=== PATIENT | male | born 1955 | race Caucasian/White ===

== ENCOUNTER 2019-04-30 16:23 | Emergency (ER) | payer MEDICAID ==
--- NOTE | 2019-04-30 17:31 | ER Document Report ---
ED Medical Screen (RME) - General Chief Complaint: Abdominal Pain Stated Complaint: ABDOMINAL PAIN Time Seen by Provider: 04/30/19 17:27 Notes: 63-year-old male coming in today with worsening left lower quadrant pain with some nausea. No vomiting or diarrhea. History of diverticulitis in the past. Feels the same. Also has a dry nonproductive cough. He denies fevers and shaking chills. I have treated and performed a rapid initial assessment of this patient. A comprehensive ED assessment and evaluation of the patient, analysis of test results and completion of medical decision making process will be conducted by additional ED providers. PHYSICAL EXAMINATION: GENERAL: Well-appearing, well-nourished and in no acute distress. A&Ox4. Answers questions appropriately. LUNGS: Breath sounds clear to auscultation bilaterally and equal. No wheezes rales or rhonchi. HEART: Regular rate and rhythm without murmurs, rubs, gallops. ABDOMEN: Tenderness to left lower quadrant Extremities: No cyanosis, clubbing, or edema b/l. NEUROLOGICAL: Normal speech, normal gait. PSYCH: Normal mood, normal affect. - Related Data Allergies/Adverse Reactions: No Known Allergies Allergy (Unverified 04/30/19 16:24) Physical Exam - Vital signs Vitals: Temp Pulse Resp BP Pulse Ox 98.9 F 92 18 159/104 H 97 04/30/19 16:30 04/30/19 16:30 04/30/19 16:30 04/30/19 16:30 04/30/19 16:30 Course - Vital Signs Vital signs: Temp Pulse Resp BP Pulse Ox 98.9 F 92 18 159/104 H 97 04/30/19 16:30 04/30/19 16:30 04/30/19 16:30 04/30/19 16:30 04/30/19 16:30
[2019-04-30] MEDS ORDERED: KETOROLAC TROMETHAMINE INJ/PF 30 MG/1 ML SDV IV ONE (17:32)
[2019-04-30 18:07] LABS: ABSOLUTE EOSINOPHILS # (AUTO) 0.1 10^3/uL (0.0-0.6); ABSOLUTE LYMPHOCYTES (AUTO) 0.7 10^3/uL (0.5-4.7); ABSOLUTE MONOCYTES (AUTO) 0.8 10^3/uL (0.1-1.4); ABSOLUTE NEUT (AUTO) 5.2 10^3/uL (1.7-8.2); BASOPHILS % (AUTO) 0.4 % (0-2); EOSINOPHILS % (AUTO) 1.2 % (0-6); HEMATOCRIT 44.3 % (37.9-51.0); HEMOGLOBIN 14.8 g/dL (13.5-17.0); LYMPHOCYTES % (AUTO) 10.6 % (13-45); MEAN CORPUSCULAR HEMOGLOBIN 27.3 pg (27.0-33.4); MEAN CORPUSCULAR HGB CONC 33.4 g/dL (32.0-36.0); MEAN CORPUSCULAR VOLUME 82 fl (80-97); MONOCYTES % (AUTO) 11.6 % (3-13); PLATELET COUNT 203 10^3/uL (150-450); RED BLOOD COUNT 5.43 10^6/uL (4.35-5.55); SEGMENTED NEUTROPHILS % (AUTO) 76.2 % (42-78); TOTAL CELLS COUNTED % (AUTO) 100 %; WHITE BLOOD COUNT 6.8 10^3/uL (4.0-10.5)
[2019-04-30 18:10] LABS: APPEARANCE,URINE CLEAR; BILIRUBIN,URINE NEGATIVE (NEGATIVE); COLOR,URINE STRAW; GLUCOSE, URINE NEGATIVE (NEGATIVE); KETONES,URINE NEGATIVE (NEGATIVE); LEUKOCYTE ESTERASE,URINE NEGATIVE (NEGATIVE); NITRITE,URINE NEGATIVE (NEGATIVE); PROTEIN,URINE NEGATIVE (NEGATIVE); URINE SPECIFIC GRAVITY 1.004; UROBILINOGEN,URINE NEGATIVE mg/dL (<2.0)
[2019-04-30 18:26] LABS: ALANINE AMINOTRANSFERASE 16 U/L (21-72); ALBUMIN 4.1 g/dL (3.5-5.0); ALKALINE PHOSPHATASE 84 U/L (38-126); ANION GAP 9 (5-19); ASPARTATE AMINO TRANSFERASE 17 U/L (17-59); BILIRUBIN,DIRECT 0.2 mg/dL (0.0-0.4); BILIRUBIN,TOTAL 0.6 mg/dL (0.2-1.3); BLOOD UREA NITROGEN 18 mg/dL (7-20); CALCIUM 9.1 mg/dL (8.4-10.2); CARBON DIOXIDE 27 mmol/L (22-30); CHLORIDE 103 mmol/L (98-107); GLUCOSE 143 mg/dL (75-110); POTASSIUM 3.9 mmol/L (3.6-5.0); SODIUM 139.4 mmol/L (137-145); TOTAL PROTEIN 6.6 g/dL (6.3-8.2)
--- NOTE | 2019-04-30 19:14 | RADIOLOGY REPORT (SQ) ---
EXAM DESCRIPTION: CT ABD/PELVIS WITH IV ONLY COMPLETED DATE/TIME: 04/30/2019 7:05 pm REASON FOR STUDY: llq pain COMPARISON: None. TECHNIQUE: CT scan of the abdomen and pelvis performed using helical scanning technique with dynamic intravenous contrast injection. No oral contrast. Images reviewed with lung, soft tissue, and bone windows. Reconstructed coronal and sagittal MPR images reviewed. Delayed images for evaluation of the urinary system also acquired. All images stored on PACS. All CT scanners at this facility use dose modulation, iterative reconstruction, and/or weight based d osing when appropriate to reduce radiation dose to as low as reasonably achievable (ALARA). [facility]: Dose Right [facility]: CareDose [facility]: Dose Right [facility]: Teradose 4D [facility]: [email or web address] CONTRAST TYPE AND DOSE: contrast/concentration: Isovue 350.00 mg/ml; Total Contrast Delivered: 100.0 ml; Total Saline Delivered: 72.0 ml RENAL FUNCTION: GFR > 60. RADIATION DOSE: CT Rad equipment meets quality standard of care and radiation dose reduction techniq ues were employed. CTDIvol: 20.5 - 20.8 mGy. DLP: 2379 mGy-cm.. LIMITATIONS: None. FINDINGS: LOWER CHEST: No significant findings. No nodules or infiltrates. LIVER: 1 cm cyst. SPLEEN: Normal size. No focal lesions. PANCREAS: No masses. No significant calcifications. No adjacent inflammation or peripancreatic fluid collections. Pancreatic duct not dilated. GALLBLADDER: Surgically absent. ADRENAL GLANDS: No significant masses or asymmetry. RIGHT KIDNEY AND URETER: No solid masses. No significant calcifications. No hydronephrosis or hyd roureter. LEFT KIDNEY AND URETER: No solid masses. No significant calcifications. No hydronephrosis or hydr oureter. AORTA AND VESSELS: No aneurysm. RETROPERITONEUM: No retroperitoneal adenopathy, hemorrhage or masses. BOWEL AND PERITONEAL CAVITY: Diverticulitis sigmoid colon. No abscess or obstruction. Prior gastric bypass. No ascites or free air. APPENDIX: Normal. PELVIS: No mass. No free fluid. Normal bladder. ABDOMINAL WALL: No masses. No hernias. BONES: Nothing acute. OTHER: No other significant finding. IMPRESSION: Sigmoid diverticulitis. TECHNICAL DOCUMENTATION: JOB ID: [id number] Quality ID # [id number]: Final reports with documentation of one or more dose reduction techniques (e.g., Au tomated exposure control, adjustment of the mA and/or kV according to patient size, use of iterative reconstruction technique) 2010 [employer]- All Rights Reserved Reading location - IP/workstation name: [email or web address]
[2019-04-30] MEDS ORDERED: CIPROFLOXACIN HCL 500 MG TABLET PO ONE (19:31)
[2019-04-30] MEDS ORDERED: METRONIDAZOLE 500 MG TABLET PO ONE (19:31)
--- NOTE | 2019-04-30 19:38 | ER Document Report ---
Addendum entered and electronically signed by SHARONDA HARRIS PA-C 04/30/19 20:07: Discharge - Discharge Clinical Impression: Sigmoid diverticulitis, Renal insufficiency Condition: Good Disposition: HOME, SELF-CARE Instructions: Diverticulitis ([facility]), Kidney Failure ([facility]) Additional Instructions: If your symptoms are getting worse instead of improving, please return. Also if you get a fever and chills or develop nausea and vomiting, I like for you to return to be rechecked. Your kidney functions are slightly elevated above normal. This may be chronic but we do not have any labs to compare to. In the event that you are unaware of this, please follow-up with the [facility] to have this further evaluated. Prescriptions: Hydrocodone/Acetaminophen [Effort 5-325 mg Tablet] 1 tab PO Q6HP PRN #12 tablet PRN Reason: Ondansetron [Zofran Odt 4 mg Tablet] 1 tab PO Q6HP PRN #15 tab.rapdis PRN Reason: For Nausea/Vomiting Ciprofloxacin HCl [Cipro 500 mg Tablet] 500 mg PO BID #20 tablet Metronidazole [Flagyl 500 mg Tablet] 500 mg PO TID #30 tablet Referrals: [facility] [Provider Group] - Follow up as needed Original Note: ED General - General Chief Complaint: Abdominal Pain Stated Complaint: ABDOMINAL PAIN Time Seen by Provider: 04/30/19 17:27 Primary Care Provider: [facility] [Provider Group] - Follow up as needed Mode of Arrival: Ambulatory Information source: Patient TRAVEL OUTSIDE OF THE [place] IN LAST 30 DAYS: No - HPI Patient complains to provider of: Left lower quadrant pain worse with coughing and standing Onset: Last week Onset/Duration: Constant Quality of pain: Sharp Severity: Severe Pain Level: 4 Associated symptoms: None, Chest pain. denies: Chills, Diarrhea, Fever, Nausea, Vomiting Exacerbated by: Walking, Coughing Relieved by: Denies Similar symptoms previously: No Recently seen / treated by doctor: No Notes: 63-year-old male coming in today with left lower quadrant pain since last week. Worse with standing and coughing. No fevers or chills. No diarrhea. No nausea or vomiting. Feels like diverticulitis. - Related Data Allergies/Adverse Reactions: No Known Allergies Allergy (Unverified 06/07/19 16:24) Past Medical History - General Information source: Patient - Social History Smoking Status: Former Smoker Chew tobacco use (# tins/day): No Frequency of alcohol use: None Drug Abuse: None Family History: Reviewed & Not Pertinent Patient has suicidal ideation: No Patient has homicidal ideation: No Renal/ Medical History: Denies: Hx Peritoneal Dialysis Review of Systems - Review of Systems Notes: Constitutional: No fevers. No chills. EENT: No eye redness. No eye pain. No ear pain. No sore throat. Cardiovascular: No chest pain. No palpitations. Respiratory: No cough. No shortness of breath. No respiratory distress. Gastrointestinal: Left lower quadrant pain. Negative for nausea vomiting diarrhea Genitourinary: Atraumatic. No lesions. No pain. No discharge. Musculoskeletal: Atraumatic. No swelling. No deformities. Skin: No rash or lesions. Lymphatic: No swollen lymph nodes. Neurologic: No headache. No syncope. Psychiatric: No suicidal or homicidal ideation. Physical Exam - Vital signs Vitals: Temp Pulse Resp BP Pulse Ox 98.9 F 92 18 159/104 H 97 04/30/19 16:30 04/30/19 16:30 04/30/19 16:30 04/30/19 16:30 04/30/19 16:30 - Notes Notes: General: Well-developed, well-nourished. In no acute distress. Non-toxic appearing. Cardiac: Well-perfused. Regular rate and rhythm. No murmurs, rubs, or gallops. Pulmonary: No respiratory distress. No cyanosis. Bilateral lung fiels are clear to auscultation. Abdominal: Tenderness to the left lower quadrant to deep palpation. No guarding or rebound. Bowel sounds present all 4 quadrants. HEENT: Head is atraumatic. Conjunctivae not reddened. No tearing. PERRL. EOMI. Orbits atraumatic. No periorbital swelling or erythema. Oropharynx is without erythema, swelling, or exudates. Neck: Supple. No adenopathy. No meningismus. Dermatologic: Warm with good turgor. No rash. Atraumatic. Chest: Atraumatic. No chest wall tenderness to palpation. Musculoskeletal: Moves all extremities well. No range of motion deficits. no muscular or joint tenderness. No paraspinal muscle tenderness. no midline spinal tenderness or step-off. Genitourinary: Examination deferred Neurologic: No gross neurologic deficits. Psychiatric: Normal mood. Course - Re-evaluation Re-evalutation: 04/30/19 19:34 Labs are reassuring. No abscess or complications with this. Patient will be a good candidate to send home. Cipro, Flagyl, Effort, and Zofran. Patient does not have an assigned doctor locally. We will have him come back here if he needs any assistance with the diverticulitis. Incidental finding of renal insufficiency. I will refer him to [facility] for that. - Vital Signs Vital signs: Temp Pulse Resp BP Pulse Ox 98.9 F 92 18 159/104 H 97 04/30/19 16:30 04/30/19 16:30 04/30/19 16:30 04/30/19 16:30 04/30/19 16:30 - Laboratory Result Diagrams: 04/30/19 17:45 04/30/19 17:45 Laboratory results interpreted by me: 04/30/19 04/30/19 04/30/19 17:45 17:45 17:45 RDW 15.0 H Lymphocytes % 10.6 L Creatinine 1.47 H Est GFR ( Amer) 59 L Est GFR (Non-Af Amer) 49 L Glucose 143 H ALT 16 L Urine Blood SMALL H Discharge - Discharge Clinical Impression: Sigmoid diverticulitis, Renal insufficiency Condition: Good Disposition: HOME, SELF-CARE Instructions: Diverticulitis ([facility]), Kidney Failure ([facility]) Additional Instructions: If your symptoms are getting worse instead of improving, please return. Also if you get a fever and chills or develop nausea and vomiting, I like for you to return to be rechecked. Your kidney functions are slightly elevated above normal. This may be chronic but we do not have any labs to compare to. In the event that you are unaware of this, please follow-up with the [facility] to have this further evaluated. Prescriptions: Hydrocodone/Acetaminophen [Effort 5-325 mg Tablet] 1 tab PO Q6HP PRN #12 tablet PRN Reason: Ondansetron [Zofran Odt 4 mg Tablet] 1 tab PO Q6HP PRN #15 tab.rapdis PRN Reason: For Nausea/Vomiting Ciprofloxacin HCl [Cipro 500 mg Tablet] 500 mg PO BID #20 tablet Metronidazole [Flagyl 500 mg Tablet] 500 mg PO TID #30 tablet Referrals: [facility] [Provider Group] - Follow up as needed
[2019-04-30 20:14] VITALS: BP 146/101
== END 2019-04-30 20:22 | disposition home or self-care (01) ==
LOC: ER 16:23
DX: K57.32 Diverticulitis of large intestine without perforation or abscess without bleeding (principal); N28.9 Disorder of kidney and ureter, unspecified; R10.32 Left lower quadrant pain; Z87.891 Personal history of nicotine dependence
CPT/HCPCS: 99284; 96374; 36415; 85025; 80053; 81001; 74177; J1885

== ENCOUNTER 2019-09-02 14:41 | Emergency (ER) | payer SELFPAY ==
--- NOTE | 2019-09-02 14:54 | ER Document Report ---
ED Medical Screen (RME) - General Chief Complaint: Abdominal Pain Stated Complaint: ABDOMINAL PAIN Time Seen by Provider: 09/02/19 14:51 Mode of Arrival: Ambulatory Information source: Patient Notes: 61-year-old male with history of diverticulitis presents to the emergency department with complaints of left lower quad abdominal pain. Reports it feels like a flareup. Denies fever vomiting diarrhea but reports nausea. Patient left lower quad tender to palpate. I have greeted and performed a rapid initial assessment of this patient. A comprehensive ED assessment and evaluation of the patient, analysis of test results and completion of the medical decision making process will be conducted by additional ED providers. Dictation of this chart was performed using voice recognition software; therefore, there may be some unintended grammatical errors. TRAVEL OUTSIDE OF THE [place] IN LAST 30 DAYS: No - Related Data Allergies/Adverse Reactions: No Known Allergies Allergy (Unverified 04/30/19 16:24) Past Medical History - Social History Chew tobacco use (# tins/day): No Frequency of alcohol use: None Drug Abuse: None - Past Medical History Cardiac Medical History: Reports: Hx Hypertension Pulmonary Medical History: Reports: Hx COPD Renal/ Medical History: Reports: Hx End Stage Renal Disease - stage 3. Denies: Hx Peritoneal Dialysis Past Surgical History: Reports: Hx Abdominal Surgery - gastric bypass, hernia repair as achild, Hx Cholecystectomy, Hx Genitourinary Surgery - vasectomy Physical Exam - Vital signs Vitals: Temp Pulse Resp BP Pulse Ox 98.6 F 96 18 178/103 H 96 09/02/19 14:46 09/02/19 14:46 09/02/19 14:46 09/02/19 14:46 09/02/19 14:46 Course - Vital Signs Vital signs: Temp Pulse Resp BP Pulse Ox 98.6 F 96 18 178/103 H 96 09/02/19 14:46 09/02/19 14:46 09/02/19 14:46 09/02/19 14:46 09/02/19 14:46
[2019-09-02 15:36] LABS: ABSOLUTE EOSINOPHILS # (AUTO) 0.1 10^3/uL (0.0-0.6); ABSOLUTE NEUT (AUTO) 6.9 10^3/uL (1.7-8.2); APPEARANCE,URINE CLEAR; BASOPHILS % (AUTO) 0.2 % (0-2); BILIRUBIN,URINE NEGATIVE (NEGATIVE); COLOR,URINE YELLOW; EOSINOPHILS % (AUTO) 0.6 % (0-6); GLUCOSE, URINE NEGATIVE (NEGATIVE); HEMATOCRIT 46.5 % (37.9-51.0); HEMOGLOBIN 15.6 g/dL (13.5-17.0); KETONES,URINE NEGATIVE (NEGATIVE); LEUKOCYTE ESTERASE,URINE NEGATIVE (NEGATIVE); LYMPHOCYTES % (AUTO) 11.3 % (13-45); MEAN CORPUSCULAR HEMOGLOBIN 27.2 pg (27.0-33.4); MEAN CORPUSCULAR HGB CONC 33.5 g/dL (32.0-36.0); MEAN CORPUSCULAR VOLUME 81 fl (80-97); MONOCYTES % (AUTO) 11.5 % (3-13); NITRITE,URINE NEGATIVE (NEGATIVE); PLATELET COUNT 229 10^3/uL (150-450); PROTEIN,URINE NEGATIVE (NEGATIVE); RED BLOOD COUNT 5.73 10^6/uL (4.35-5.55); RED CELL DISTRIBUTION WIDTH 15.8 % (11.5-14.0); SEGMENTED NEUTROPHILS % (AUTO) 76.4 % (42-78); TOTAL CELLS COUNTED % (AUTO) 100 %; URINE SPECIFIC GRAVITY 1.015; UROBILINOGEN,URINE NEGATIVE mg/dL (<2.0)
[2019-09-02 15:55] LABS: ALBUMIN 4.2 g/dL (3.5-5.0); ALKALINE PHOSPHATASE 81 U/L (38-126); ANION GAP 7 (5-19); ASPARTATE AMINO TRANSFERASE 19 U/L (17-59); BILIRUBIN,DIRECT 0.1 mg/dL (0.0-0.4); BILIRUBIN,TOTAL 0.9 mg/dL (0.2-1.3); BLOOD UREA NITROGEN 22 mg/dL (7-20); CALCIUM 9.1 mg/dL (8.4-10.2); CARBON DIOXIDE 27 mmol/L (22-30); CHLORIDE 104 mmol/L (98-107); GLUCOSE 98 mg/dL (75-110); POTASSIUM 4.1 mmol/L (3.6-5.0)
--- NOTE | 2019-09-02 16:58 | ER Document Report ---
ED General - General Chief Complaint: Abdominal Pain Stated Complaint: ABDOMINAL PAIN Time Seen by Provider: 09/02/19 14:51 Mode of Arrival: Ambulatory TRAVEL OUTSIDE OF THE [place] IN LAST 30 DAYS: No - HPI Notes: 63-year-old male presents to the ED for complaints of left lower quadrant abdominal pain that started approximately 3 days ago. Patient does have a history of diverticulitis and diverticulosis. Denies any fevers or chills, denies any nausea vomiting or diarrhea. Patient states he has left lower quadrant pains that has become progressively worse. Has not tried any [id number] medication for pain relief. Eating has decreased but drinking without issues. Denies fevers, chills, chest pain,palpitations, shortness of breath, dyspnea, nausea, vomiting, diarrhea, ST, URI, neck pain, weakness, bowel or bladder dysfunction, saddle anesthesia, numbness or tingling in bilateral upper or lower extremities equally, muscle paralysis, weakness in bilateral uppe r or lower extremities equally or rash. - Related Data Allergies/Adverse Reactions: No Known Allergies Allergy (Unverified 04/30/19 16:24) Past Medical History - General Information source: Patient - Social History Smoking Status: Never Smoker Chew tobacco use (# tins/day): No Frequency of alcohol use: None Drug Abuse: None Family History: Reviewed & Not Pertinent Patient has suicidal ideation: No Patient has homicidal ideation: No - Past Medical History Cardiac Medical History: Reports: Hx Hypertension Pulmonary Medical History: Reports: Hx COPD Renal/ Medical History: Reports: Hx End Stage Renal Disease - stage 3. Denies: Hx Peritoneal Dialysis Past Surgical History: Reports: Hx Abdominal Surgery - gastric bypass, hernia repair as achild, Hx Cholecystectomy, Hx Genitourinary Surgery - vasectomy Review of Systems - Review of Systems Constitutional: No symptoms reported EENT: No symptoms reported Cardiovascular: No symptoms reported Respiratory: No symptoms reported Gastrointestinal: See HPI Genitourinary: No symptoms reported Male Genitourinary: No symptoms reported Musculoskeletal: No symptoms reported Skin: No symptoms reported Hematologic/Lymphatic: No symptoms reported Neurological/Psychological: No symptoms reported Physical Exam - Vital signs Vitals: Temp Pulse Resp BP Pulse Ox 98.6 F 96 18 178/103 H 96 09/02/19 14:46 09/02/19 14:46 09/02/19 14:46 09/02/19 14:46 09/02/19 14:46 - Notes Notes: PHYSICAL EXAMINATION: reviewed vital signs by RN GENERAL: Well-appearing, well-nourished and in no acute distress. HEAD: Atraumatic, normocephalic. EYES: Pupils equal round and reactive to light, extraocular movements intact, conjunctiva are normal. ENT: Nares patent, oropharynx clear without exudates. Moist mucous membranes. NECK: Normal range of motion, supple without lymphadenopathy LUNGS: Breath sounds clear to auscultation bilaterally and equal. No wheezes rales or rhonchi. HEART: Regular rate and rhythm without murmurs ABDOMEN: Soft, nondistended abdomen. left lower quadrant pain on palpation. No guarding, no rebound. No masses appreciated. no cva tenderness bilaterally Musculoskeletal: Normal range of motion, no pitting or edema. No cyanosis. NEUROLOGICAL: Cranial nerves grossly intact. Normal speech, normal gait. Normal sensory, motor exams PSYCH: Normal mood, normal affect. SKIN: Warm, Dry, normal turgor, no rashes or lesions noted. Course - Re-evaluation Re-evalutation: 09/02/19 18:10 Afebrile slightly hypertensive but stable otherwise. Nurse's notes reviewed. CBC negative for leukocytosis or anemia, CMP negative for hepatic or renal dysfunction, no electrolyte disturbances. Urinalysis does show hematuria this is consistent his last urinalysis. CT abdomen pelvis with IV contrast shows oneyda hebert has left sigmoid diverticulitis. Patient given IV pain medication due to pain being 8 out of 10, throbbing. On reevaluation, pain reduced to 3/10. She states he normally takes Tums for his acid reflux, did not bring any with him, Carafate given 1 g tablet orally which did reduce his heartburn. Denies any shortness of breath, chest pain, nausea vomiting or diarrhea. Start patient on Flagyl 500 mg twice daily for 10 days and ciprofloxacin 500 mg twice daily for 10 days as well as pain medication to take.follow up with your pcp within 24-48 hours. After performing a Medical Screening Examination, I estimate there is LOW risk for ACUTE APPENDICITIS, BOWEL OBSTRUCTION, ACUTE CHOLECYSTITIS, PERFORATED DIVERTICULITIS, INCARCERATED HERNIA, PANCREATITIS, TESTICULAR TORSION or PERFORATED ULCER, thus I consider the discharge disposition reasonable. Also, there is no evidence or peritonitis, sepsis, or toxicity. I have reevaluated this patient multiple times and no significant life threatening changes are noted. The patient and I have discussed the diagnosis and risks, and we agree with discharging home with close follow-up with the understanding that symptoms and presentations can change. We also discussed returning to the Emergency Department immediately if new or worsening symptoms occur. We have discussed the symptoms which are most concerning (e.g., bloody stool, fever, changing or worsening pain, intractable vomiting - standard verbal up date) that necessitate immediate return. - Vital Signs Vital signs: Temp Pulse Resp BP Pulse Ox 98.6 F 96 18 178/103 H 96 09/02/19 14:46 09/02/19 14:46 09/02/19 14:46 09/02/19 14:46 09/02/19 14:46 - Laboratory Result Diagrams: 09/02/19 15:00 09/02/19 15:00 Laboratory results interpreted by me: 09/02/19 09/02/19 09/02/19 15:00 15:00 15:00 RBC 5.73 H RDW 15.8 H Lymph % (Auto) 11.3 L BUN 22 H Creatinine 1.42 H Est GFR (MDRD) Non-Af 51 L Urine Blood SMALL H Discharge - Discharge Clinical Impression: Diverticulitis, Acute kidney failure Condition: Stable Disposition: HOME, SELF-CARE Instructions: Diverticulitis ([facility]), Dehydration ([facility]) Additional Instructions: Diverticulitis You have been diagnosed as having diverticulitis. This is an inflammation of a small pouch attached to the colon, called a diverticulum. Many of these small pouches can form on the colon as you get older. They are often caused by constipation. When inflamed or infected, symptoms arise -- usually abdominal pain, constipation or diarrhea, fever, and blood in the stool. Severe diverticulitis may require hospitalization. More mild cases are usually treated with antibiotics and clear liquid diet. As you improve, a diet low in residue (one which forms little stool) is prescribed. When you are better, you should eat a high-fiber diet. Stool softeners (like Metamucil) are usually recommended. Call the doctor or go to the hospital if there is increasing pain, vomitin g, high fever, large amounts of blood passed, or if bowel movements cease. Oral Narcotic Medication You have been given a prescription for pain control. This medication is a narcotic. It's best taken with food, as nausea can result if taken on an empty stomach. Don't operate machinery or drive within six hours of taking this medication. Do not combine this medicine with alcohol, or with any medication which can cause sedation (such as cold tablets or sleeping pills) unless you get permission from the physician. Narcotics tend to cause constipation. If possible, drink plenty of fluids and eat a diet high in fiber and fruits. Prescriptions: Hydrocodone/Acetaminophen [Baring 5-325 mg Tablet] 1 tab PO Q4HP PRN #12 tablet PRN Reason: Ciprofloxacin HCl [Cipro 500 mg Tablet] 500 mg PO BID #20 tablet Metronidazole [Flagyl] 500 mg PO BID #20 tablet Forms: Return to Work Referrals: DEQUAN BABIN MD [ACTIVE STAFF] - Follow up as needed MO DON MD [ACTIVE STAFF] - Follow up as needed
[2019-09-02] MEDS ORDERED: MORPHINE SULFATE 10 MG/ML INJ IV ONE (17:03)
[2019-09-02] MEDS ORDERED: ONDANSETRON HCL INJ/PF 4 MG/2 ML SDV IV ONE (17:03)
--- NOTE | 2019-09-02 17:36 | RADIOLOGY REPORT (SQ) ---
EXAM DESCRIPTION: CT ABD/PELVIS WITH IV ONLY COMPLETED DATE/TIME: 09/02/2019 4:48 pm REASON FOR STUDY: pain, hx diverticulitis COMPARISON: None. TECHNIQUE: CT scan of the abdomen and pelvis performed using helical scanning technique with dynamic intravenous contrast injection. No oral contrast. Images reviewed with lung, soft tissue, and bone windows. Reconstructed coronal and sagittal MPR images reviewed. Delayed images for evaluation of the urinary system also acquired. All images stored on PACS. All CT scanners at this facility use dose modulation, iterative reconstruction, and/or weight based d osing when appropriate to reduce radiation dose to as low as reasonably achievable (ALARA). [facility]: Dose Right [facility]: CareDose [facility]: Dose Right [facility]: Teradose 4D [facility]: [employer] CONTRAST TYPE AND DOSE: Contrast/concentration: Isovue 350.00 mg/ml; Total Contrast Delivered: 100.0 ml; Total Saline Delivered: 72.0 ml RENAL FUNCTION: Creatinine 1.42 milligrams/deciliter. RADIATION DOSE: CT Rad equipment meets quality standard of care and radiation dose reduction techniq ues were employed. CTDIvol: 21.0 - 21.1 mGy. DLP: 2483 mGy-cm.. LIMITATIONS: None. FINDINGS: LOWER CHEST: No acute findings. LIVER: The liver morphology is non cirrhotic. The subcentimeter hypodense lesion in the posterior as pect of the right hepatic lobe (image 25 series 3) is too small to characterize. The portal veins ar e patent. SPLEEN: The spleen is normal in size. PANCREAS: There is no abnormality of the pancreas. GALLBLADDER: The gallbladder is surgically absent. ADRENAL GLANDS: There is no abnormality of the adrenal glands. RIGHT KIDNEY AND URETER: Innumerable hypodense cystic lesions and probable 2 mm calculus within a the anterior lower pole calyx Lopez there is no hydronephrosis, hydroureter or ureterolithiasis. LEFT KIDNEY AND URETER: Innumerable hypodense cystic lesions. There is no hydronephrosis, nephrolith iasis, hydroureter or ureterolithiasis. The stranding in the posterior pararenal space is unchanged from 04/30/2019. AORTA AND VESSELS: No abdominal aortic dissection or aneurysmal dilatation. RETROPERITONEUM: No retroperitoneal adenopathy, hemorrhage or mass. BOWEL AND PERITONEAL CAVITY: Short segment of bowel wall thickening involving the sigmoid colon and a ssociated with thickening of the peritoneal reflections and stranding of the mesocolon ; these findin gs are centered at around an enlarged diverticulum. There is no evidence of a micro or macroperforat ion. APPENDIX: Unable to identify the appendix but there is no pericecal inflammation to suggest an acute appendicitis. PELVIS: The urinary bladder is partially distended. The prostate gland is normal in size. There is no pelvic adenopathy, free fluid or mass. ABDOMINAL WALL: Left fat containing inguinal hernia. BONES: No acute findings. OTHER: No other finding. IMPRESSION: Uncomplicated acute diverticulitis of the proximal sigmoid colon. COMMENT: This report was called to DEV DOBSON NP at17:29 on 09/02/2019. TECHNICAL DOCUMENTATION: JOB ID: [id number] Quality ID # [id number]: Final reports with documentation of one or more dose reduction techniques (e.g., Au tomated exposure control, adjustment of the mA and/or kV according to patient size, use of iterative reconstruction technique) 2010 [employer]- All Rights Reserved Reading location - IP/workstation name: [email or web address]
[2019-09-02 17:50] VITALS: BP 103/92
[2019-09-02] MEDS ORDERED: SUCRALFATE 1 GM TABLET PO ONE (17:57)
== END 2019-09-02 18:00 | disposition home or self-care (01) ==
LOC: ER 14:41
DX: K57.32 Diverticulitis of large intestine without perforation or abscess without bleeding (principal); N17.9 Acute kidney failure, unspecified; R10.32 Left lower quadrant pain; I10 Essential (primary) hypertension; J44.9 Chronic obstructive pulmonary disease, unspecified; Z98.84 Bariatric surgery status
CPT/HCPCS: 36415; 83690; 85025; 80053; 81001; 74177; J2270; J2405

== ENCOUNTER → 2020-01-13 | Outpatient (CLI) | payer OTHER, MEDICARE ==
--- NOTE | 2020-01-13 09:08 | EKG REPORT ---
SEVERITY:- OTHERWISE NORMAL ECG - SINUS RHYTHM LEFT AXIS DEVIATION : Confirmed by: Jorge Villa 13-Jan-2020 09:07:53
[2020-01-13 09:25] LABS: APPEARANCE,URINE CLEAR; BILIRUBIN,URINE NEGATIVE (NEGATIVE); COLOR,URINE YELLOW; GLUCOSE, URINE NEGATIVE (NEGATIVE); KETONES,URINE NEGATIVE (NEGATIVE); LEUKOCYTE ESTERASE,URINE NEGATIVE (NEGATIVE); NITRITE,URINE NEGATIVE (NEGATIVE); PROTEIN,URINE NEGATIVE (NEGATIVE); URINE SPECIFIC GRAVITY 1.019; UROBILINOGEN,URINE NEGATIVE mg/dL (<2.0)
[2020-01-13 09:27] LABS: ABSOLUTE EOSINOPHILS # (AUTO) 0.1 10^3/uL (0.0-0.6); ABSOLUTE LYMPHOCYTES (AUTO) 0.9 10^3/uL (0.5-4.7); ABSOLUTE MONOCYTES (AUTO) 0.4 10^3/uL (0.1-1.4); ABSOLUTE NEUT (AUTO) 1.8 10^3/uL (1.7-8.2); BASOPHILS % (AUTO) 0.6 % (0-2); EOSINOPHILS % (AUTO) 3.6 % (0-6); HEMATOCRIT 43.2 % (37.9-51.0); HEMOGLOBIN 14.7 g/dL (13.5-17.0); LYMPHOCYTES % (AUTO) 26.4 % (13-45); MEAN CORPUSCULAR HGB CONC 34.1 g/dL (32.0-36.0); MEAN CORPUSCULAR VOLUME 85 fl (80-97); MONOCYTES % (AUTO) 12.8 % (3-13); PLATELET COUNT 180 10^3/uL (150-450); RED BLOOD COUNT 5.09 10^6/uL (4.35-5.55); RED CELL DISTRIBUTION WIDTH 14.6 % (11.5-14.0); SEGMENTED NEUTROPHILS % (AUTO) 56.6 % (42-78); TOTAL CELLS COUNTED % (AUTO) 100 %; WHITE BLOOD COUNT 3.3 10^3/uL (4.0-10.5)
[2020-01-13 09:40] LABS: BLOOD UREA NITROGEN 33 mg/dL (7-20); CALCIUM 8.9 mg/dL (8.4-10.2); CARBON DIOXIDE 28 mmol/L (22-30); GLUCOSE 101 mg/dL (75-110); POTASSIUM 3.9 mmol/L (3.6-5.0)
[2020-01-13 10:50] LABS: CHLORIDE 107 mmol/L (98-107)
[2020-01-13 10:54] LABS: ANION GAP 5 (5-19)
--- NOTE | 2020-01-13 13:40 | RADIOLOGY REPORT (SQ) ---
EXAM DESCRIPTION: CHEST PA/LATERAL COMPLETED DATE/TIME: 01/13/2020 8:59 am REASON FOR STUDY: PRE-OP COMPARISON: None. EXAM PARAMETERS: NUMBER OF VIEWS: two views TECHNIQUE: Digital Frontal and Lateral radiographic views of the chest acquired. RADIATION DOSE: NA LIMITATIONS: none FINDINGS: LUNGS AND PLEURA: No opacities, masses or pneumothorax. No pleural effusion. MEDIASTINUM AND HILAR STRUCTURES: No masses or contour abnormalities. HEART AND VASCULAR STRUCTURES: Heart normal size. No evidence for failure. BONES: No acute findings. HARDWARE: None in the chest. OTHER: No other significant finding. IMPRESSION: NO SIGNIFICANT RADIOGRAPHIC FINDING IN THE CHEST. TECHNICAL DOCUMENTATION: JOB ID: [id number] 2010 [employer]- All Rights Reserved Reading location - IP/workstation name: [email or web address]
== END ==
LOC: OD 08:31
PROVIDERS: ATTEND Orthopaedic Surgery
DX: Z01.812 Encounter for preprocedural laboratory examination (principal); Z01.810 Encounter for preprocedural cardiovascular examination; Z01.811 Encounter for preprocedural respiratory examination; M17.11 Unilateral primary osteoarthritis, right knee; I10 Essential (primary) hypertension
CPT/HCPCS: 36415; 71046; 80048; 81001; 85025; 93005; 93010

== ENCOUNTER → 2020-02-03 | Outpatient (CLI) | payer OTHER, MEDICARE ==
[~2020-02-03] MED LIST: BUPIVACAINE INJ/PF LIPOSOME/PF 266 MG/20 ML SDV INJ PRN; CEFAZOLIN INJ 1 GM VIAL IV PRN; CEFAZOLIN INJ 1 GM VIAL ONE; IBUPROFEN 800 MG in NORMAL SALINE 250 ML IV PRN; LACTATED RINGERS 1000 ML IV PRN; LIDOCAINE 0.5% INJ-PF (5 MG/ML) 50 ML SDV SUBCUT PRN; OXYCODONE HCL SR 10 MG TABLET PO ONE; OXYCODONE HCL SR 10 MG TABLET PO PRN; PANTOPRAZOLE SODIUM 20 MG TABLET.DR PO ONE; PANTOPRAZOLE SODIUM 20 MG TABLET.DR PO PRN; VANCOMYCIN HCL 1,000 MG in DEXTROSE 5%-WATER 250 ML IV PRN
== END ==
LOC: OD 11:20 → INOR 02-07 05:58 → UNDOADMIN 02-07 05:58 → EDSTATUS 02-07 08:45
PROVIDERS: ATTEND Orthopaedic Surgery
DX: Z53.9 Procedure and treatment not carried out, unspecified reason (principal)
CPT/HCPCS: 36415; 84132; J0690; J1741; J3370; J3490; J7050; J7060

== ENCOUNTER 2020-04-24 05:17 | Inpatient (IN) | payer OTHER, MEDICARE ==
[2020-04-19 11:23] LABS: HEMATOCRIT 44.4 % (37.9-51.0); HEMOGLOBIN 15.4 g/dL (13.5-17.0); MEAN CORPUSCULAR HEMOGLOBIN 29.5 pg (27.0-33.4); MEAN CORPUSCULAR HGB CONC 34.8 g/dL (32.0-36.0); MEAN CORPUSCULAR VOLUME 85 fl (80-97); PLATELET COUNT 205 10^3/uL (150-450); RED BLOOD COUNT 5.23 10^6/uL (4.35-5.55); RED CELL DISTRIBUTION WIDTH 14.8 % (11.5-14.0); WHITE BLOOD COUNT 4.2 10^3/uL (4.0-10.5)
[2020-04-19 11:28] LABS: APPEARANCE,URINE CLEAR; BILIRUBIN,URINE NEGATIVE (NEGATIVE); COLOR,URINE YELLOW; GLUCOSE, URINE NEGATIVE (NEGATIVE); KETONES,URINE NEGATIVE (NEGATIVE); LEUKOCYTE ESTERASE,URINE NEGATIVE (NEGATIVE); NITRITE,URINE NEGATIVE (NEGATIVE); PROTEIN,URINE NEGATIVE (NEGATIVE); URINE SPECIFIC GRAVITY 1.012; UROBILINOGEN,URINE NEGATIVE mg/dL (<2.0)
--- NOTE | 2020-04-19 11:35 | RADIOLOGY REPORT (SQ) ---
EXAM DESCRIPTION: CHEST PA/LATERAL IMAGES COMPLETED DATE/TIME: 04/19/2020 10:36 am REASON FOR STUDY: PRE-OP COMPARISON: PA and lateral views of the chest from 01/13/2020. EXAM PARAMETERS: NUMBER OF VIEWS: Two views. TECHNIQUE: PA and lateral views of the chest were obtained. RADIATION DOSE: NA. LIMITATIONS: None. FINDINGS: LUNGS AND PLEURA: No consolidation, pleural effusion or pneumothorax. MEDIASTINUM AND HILAR STRUCTURES: No mediastinal or hilar contour abnormality. HEART AND VASCULAR STRUCTURES: The cardiac silhouette and pulmonary vasculature are within normal blake its. BONES: No acute findings. HARDWARE: None in the chest. OTHER: No other finding. IMPRESSION: No acute cardiopulmonary process. TECHNICAL DOCUMENTATION: JOB ID: [id number] 2010 [employer]- All Rights Reserved Reading location - IP/workstation name: [email or web address]
[2020-04-19 11:38] LABS: ANION GAP 8 (5-19); BLOOD UREA NITROGEN 23 mg/dL (7-20); CARBON DIOXIDE 24 mmol/L (22-30); CHLORIDE 105 mmol/L (98-107); GLUCOSE 94 mg/dL (75-110)
[2020-04-19 11:58] LABS: ABSOLUTE LYMPHOCYTES# (MANUAL) 1.3 10^3/uL (0.5-4.7); ABSOLUTE MONOCYTES # (MANUAL) 0.3 10^3/uL (0.1-1.4); ANISOCYTOSIS SLIGHT; BASOPHILS % (MANUAL) 0 % (0-2); EOSINOPHILS % (MANUAL) 2 % (0-6); HYPOCHROMASIA SLIGHT; LYMPHOCYTES % (MANUAL) 31 % (13-45); MONOCYTES % (MANUAL) 7 % (3-13); PLATELET COMMENT ADEQUATE; SEGMENTED NEUTROPHILS % (MAN) 60 % (42-78); TOTAL CELLS COUNTED 100; TOXIC VACUOLATION PRESENT
[2020-04-19 11:59] LABS: TEAR DROP CELLS 1+
--- NOTE | 2020-04-19 19:15 | EKG REPORT ---
SEVERITY:- ABNORMAL ECG - SINUS RHYTHM FIRST DEGREE AV BLOCK LEFT AXIS DEVIATION : Confirmed by: Walter Gifford MD 19-Apr-2020 19:15:04
[~2020-04-24 05:17] MED LIST changes: -BUPIVACAINE INJ/PF LIPOSOME/PF 266 MG/20 ML SDV INJ PRN; -OXYCODONE HCL SR 10 MG TABLET PO PRN
[2020-04-24] MEDS: OXYCODONE HCL SR 10 MG TABLET PO PRN ×2 (05:30→18:27)
[2020-04-24] MEDS ORDERED: MIDAZOLAM 2 MG/2 ML INJ ONE (06:21)
[2020-04-24] MEDS ORDERED: ONDANSETRON HCL INJ/PF 4 MG/2 ML SDV ONE (06:21)
[2020-04-24] MEDS ORDERED: DEXAMETHASONE SOD PHOSPHATE INJ 4 MG/1 ML VIAL ONE (06:21)
[2020-04-24] MEDS ORDERED: FENTANYL CITRATE INJ/PF 100 MCG/2 ML AMPUL ONE (06:21)
[2020-04-24] MEDS ORDERED: PROPOFOL INJ 200 MG/20 ML VIAL IV ONE (06:22)
[2020-04-24] MEDS ORDERED: LIDOCAINE 0.5% INJ-PF (5 MG/ML) 50 ML SDV ONE (06:25)
[2020-04-24] MEDS ORDERED: TRANEXAMIC ACID INJ/PF 1,000 MG/10 ML SDV ONE (06:25)
[2020-04-24] MEDS ORDERED: BUPIVACAINE INJ/PF LIPOSOME/PF 266 MG/20 ML SDV ONE (07:17)
[2020-04-24] MEDS ORDERED: THROMBIN (BOVINE) TOPICAL 20000 UNIT VIAL ONE (07:17)
[2020-04-24] MEDS ORDERED: MORPHINE SULFATE 10 MG/ML INJ IV PRN (07:57)
[2020-04-24] MEDS ORDERED: DIPHENHYDRAMINE HCL 50 MG/ML VIAL IV PRN ×2 (07:57→08:39)
[2020-04-24] MEDS ORDERED: FENTANYL CITRATE INJ/PF 100 MCG/2 ML AMPUL IV PRN ×3 (07:57)
[2020-04-24] MEDS ORDERED: MEPERIDINE HCL/PF INJ 25 MG/1 ML DISP.SYRIN IV PRN (07:57)
[2020-04-24] MEDS ORDERED: PROMETHAZINE HCL INJ 25 MG/1 ML VIAL IV PRN ×2 (07:57)
[2020-04-24] MEDS ORDERED: ONDANSETRON HCL INJ/PF 4 MG/2 ML SDV IV PRN ×2 (07:57→08:39)
[2020-04-24] MEDS: BUPIVACAINE INJ/PF LIPOSOME/PF 266 MG/20 ML SDV INJ PRN ×2 (08:08→08:26)
--- NOTE | 2020-04-24 08:38 | Operative Report ---
Operative Report DATE OF SURGERY: 04/24/20 PREOPERATIVE DIAGNOSIS: Right knee arthritis OPERATION: Right knee arthroplasty SURGEON: LETICIA COLIN ANESTHESIA: GA TISSUE REMOVED OR ALTERED: Bone to pathology ESTIMATED BLOOD LOSS: 75 PROCEDURE: Implants used: Femur: sRyker triathlon size 7 CR uncemented femur Tibia: 7 uncemented tibia Tibial liner: 11 mm CS insert Patella: 40 mm uncemented patella Procedure with the patient supine on the operating table the right the limb is prepped and draped in a sterile fashion. The limb was elevated for exsanguination and the tourniquet inflated to 280 torr. A standard midline median parapatellar approach the knee is taken. Access is gained to the femoral canal through the intercondylar notch. Intramedullary alignment instrumentation used to resect 10 mm of distal femur in 5 of valgus. Sizing guide indicated a size 7 femur. Appropriate cutting jig is then used to fashion anterior posterior and chamfer cuts. A trial reduction femurs performed and this is judged to be adequate. Attention was next turned to the tibia. Using an extra medullary alignment system 11 millimeters was resected off the medial tibial plateau to make up for a medial tibial plateau defect.. This is sized to a size [place] tibia. A trial reduction was now performed with a 7 femur and a 7 tibia using a 11 millimeters spacer. It is full extension and central patellofemoral tracking. The articular surface the patella was next resected using an oscillating saw. All trial implants were removed. The above implants were impacted into po sition. The tourniquet was deflated hemostasis obtained the wound is then closed in layers using interrupted Vicryl followed by elodia. A sterile compressive dressing was applied and the patient returned to recovery room in satisfactory condition.
[2020-04-24] MEDS ORDERED: ZOLPIDEM TARTRATE 5 MG TABLET PO PRN (08:39)
[2020-04-24] MEDS ORDERED: ONDANSETRON 4 MG TAB.RAPDIS PO PRN (08:39)
[2020-04-24] MEDS ORDERED: ACETAMINOPHEN 325 MG TABLET PO PRN (08:39)
[2020-04-24] MEDS ORDERED: MAG HYDROX/AL HYDROX/SIMETH SUSP 30 ML UDCUP PO PRN (08:39)
[2020-04-24] MEDS ORDERED: TRANEXAMIC ACID INJ/PF 1,000 MG/10 ML SDV IV ONE (09:00)
[2020-04-24] MEDS: HYDROMORPHONE HCL INJ/PF 2 MG/ML AMPULE ONE ×2 (09:21→09:41)
--- NOTE | 2020-04-24 09:54 | RADIOLOGY REPORT (SQ) ---
EXAM DESCRIPTION: KNEE RIGHT 2 VIEWS IMAGES COMPLETED DATE/TIME: 04/24/2020 9:29 am REASON FOR STUDY: Post OP -Long Cassette in PACU M17.11 UNILATERAL PRIMARY OSTEOARTHRITIS, RIGHT KN EE COMPARISON: None. NUMBER OF VIEWS: Two views. TECHNIQUE: AP and lateral radiographic images acquired of the right knee. LIMITATIONS: None. FINDINGS: MINERALIZATION: Normal. BONES: Status post TKA; the hardware is in anatomic alignment. There is no periprosthetic fracture. JOINT: Intra-articular and subcutaneous emphysema. SOFT TISSUES: As above. OTHER: Surgical cutaneous elodia. IMPRESSION: Uncomplicated TKA hardware with expected immediate postoperative findings. TECHNICAL DOCUMENTATION: JOB ID: [id number] 2010 [employer]- All Rights Reserved Reading location - IP/workstation name: [email or web address]
[2020-04-24] MEDS ORDERED: HYDROMORPHONE HCL INJ/PF 2 MG/ML AMPULE IV PRN (09:58)
[2020-04-24] MEDS ORDERED: LOSARTAN POTASSIUM 50 MG TABLET PO SCH (10:00)
[2020-04-24] MEDS ORDERED: (PENDING PHARMACY ID) (Losartan/Hydrochlorothiazide [Losartan-Hctz 50-12.5 Mg Tab] 1 TAB) PO SCH (10:00)
[2020-04-24] MEDS: OXYCODONE HCL IR 5 MG TABLET PO PRN (10:55)
[2020-04-24] MEDS: RINGERS SOLUTION,LACTATED 1,000 ML IV PRN (10:56)
[2020-04-24] MEDS ORDERED: SUCCINYLCHOLINE CHLORIDE INJ 200 MG/10 ML VIAL ONE (14:20)
[2020-04-24] MEDS ORDERED: PHENYLEPHRINE HCL INJ/PF 10 MG/1 ML SDV ONE (14:20)
[2020-04-24] MEDS: ASPIRIN 81 MG TABLET, ENT COATED PO SCH (14:39)
[2020-04-24] MEDS: IBUPROFEN 800 MG in NORMAL SALINE 250 ML IV SCH ×2 (14:39→22:45)
[2020-04-24] MEDS: SENNOSIDES/DOCUSATE 8.6-50 MG 1 EACH TABLET PO SCH (18:21)
[2020-04-24] MEDS ORDERED: VANCOMYCIN HCL 1,000 MG in DEXTROSE 5%-WATER 250 ML IV ONE (20:39)
[2020-04-24] MEDS: OXYCODONE HCL SR 10 MG TABLET PO SCH (22:44)
[2020-04-25] MEDS: OXYCODONE HCL IR 5 MG TABLET PO PRN ×2 (05:39→12:34)
[2020-04-25] MEDS: IBUPROFEN 800 MG in NORMAL SALINE 250 ML IV SCH ×2 (05:40→15:13)
[2020-04-25] MEDS: RINGERS SOLUTION,LACTATED 1,000 ML IV PRN (05:44)
[2020-04-25] MEDS ORDERED: PANTOPRAZOLE SODIUM 40 MG TABLET.DR PO SCH (06:00)
[2020-04-25 06:21] LABS: HEMOGLOBIN 12.5 g/dL (13.5-17.0); MEAN CORPUSCULAR HEMOGLOBIN 29.2 pg (27.0-33.4); MEAN CORPUSCULAR HGB CONC 33.9 g/dL (32.0-36.0); MEAN CORPUSCULAR VOLUME 86 fl (80-97); PLATELET COUNT 150 10^3/uL (150-450); RED CELL DISTRIBUTION WIDTH 14.5 % (11.5-14.0); WHITE BLOOD COUNT 4.5 10^3/uL (4.0-10.5)
[2020-04-25 06:38] LABS: ANION GAP 5 (5-19); BLOOD UREA NITROGEN 23 mg/dL (7-20); CALCIUM 8.1 mg/dL (8.4-10.2); CARBON DIOXIDE 26 mmol/L (22-30); CHLORIDE 105 mmol/L (98-107); GLUCOSE 114 mg/dL (75-110)
--- NOTE | 2020-04-25 07:05 | PDOC DISCHARGE SUMMARY ---
Impression - Admit/DC Date/PCP Admission Date/Primary Care Provider: 04/24/20 05:17 ARTURO PACKER MD Discharge Date: 04/25/20 - Additional Information Resuscitation Status: Full Code Discharge Diet: Regular Discharge Activity: Balance Activity w/Rest, No Driving, No tub bath Referrals: ARTURO PACKER MD [Primary Care Provider] - Home Medications: Losartan/Hydrochlorothiazide [Hyzaar 100-12.5 Tablet] 1 tab PO QAM 04/24/20 History of Present Illiness History of Present Illness: WALLY YANCEY is a 64 year old male Patient is a 64-year-old white male with progressive bilateral knee pain and functional disability right greater than left. Patient is admitted for an elective right knee arthroplasty. Hospital Course Hospital Course: Is admitted through the operating room where he undergoes an uncomplicated right knee arthroplasty. Is returned to the floor in satisfactory patient. Makes modest progress with physical therapy on the day of surgery. This will continue on postop day 1 prior to discharge. Physical Exam Vital Signs: Temp Pulse Resp BP Pulse Ox 37.0 C 74 16 152/72 H 95 04/24/20 19:20 04/24/20 19:20 04/24/20 19:20 04/24/20 19:20 04/24/20 19:20 Intake & Output 04/24/20 04/25/20 04/26/20 06:59 06:59 06:59 Intake Total 0 7213 Output Total 4539 Balance 0 2674 Weight 150.4 kg General appearance: PRESENT: no acute distress, mild distress, obese Head exam: PRESENT: normocephalic Respiratory exam: PRESENT: unlabored Cardiovascular exam: PRESENT: RRR Pulses: PRESENT: +1 pedal pulses bilateral Vascular exam: PRESENT: normal capillary refill GI/Abdominal exam: PRESENT: soft Rectal exam: PRESENT: deferred Musculoskeletal exam: PRESENT: other - Lower extremity dressing clean dry and intact. Distal neurovascular examinations intact. Neurological exam: PRESENT: alert, awake, oriented to person, oriented to place, oriented to time, oriented to situation. ABSENT: motor sensory deficit Psychiatric exam: PRESENT: appropriate affect, normal mood. ABSENT: homicidal ideation, suicidal ideation Skin exam: PRESENT: dry, intact, warm. ABSENT: cyanosis, rash Results Laboratory Results: WBC 4.5 10^3/uL (4.0-10.5) 04/25/20 05:57 RBC 4.30 10^6/uL (4.35-5.55) L 04/25/20 05:57 Hgb 12.5 g/dL (13.5-17.0) L 04/25/20 05:57 Hct 37.0 % (37.9-51.0) L 04/25/20 05:57 MCV 86 fl (80-97) 04/25/20 05:57 MCH 29.2 pg (27.0-33.4) 04/25/20 05:57 MCHC 33.9 g/dL (32.0-36.0) 04/25/20 05:57 RDW 14.5 % (11.5-14.0) H 04/25/20 05:57 Plt Count 150 10^3/uL (150-450) 04/25/20 05:57 Lymph % (Auto) Not Reportable 04/19/20 10:55 Marshall % (Auto) Not Reportable 04/19/20 10:55 Eos % (Auto) Not Reportable 04/19/20 10:55 Baso % (Auto) Not Reportable 04/19/20 10:55 Absolute Neuts (auto) Not Reportable 04/19/20 10:55 Absolute Lymphs (auto) Not Reportable 04/19/20 10:55 Absolute Monos (auto) Not Reportable 04/19/20 10:55 Absolute Eos (auto) Not Reportable 04/19/20 10:55 Absolute Basos (auto) Not Reportable 04/19/20 10:55 Total Counted 100 04/19/20 10:55 Seg Neutrophils % Not Reportable 04/19/20 10:55 Seg Neuts % (Manual) 60 % (42-78) 04/19/20 10:55 Lymphocytes % (Manual) 31 % (13-45) 04/19/20 10:55 Monocytes % (Manual) 7 % (3-13) 04/19/20 10:55 Eosinophils % (Manual) 2 % (0-6) 04/19/20 10:55 Basophils % (Manual) 0 % (0-2) 04/19/20 10:55 Abs Neuts (Manual) 2.5 10^3/uL (1.7-8.2) 04/19/20 10:55 Abs Lymphs (Manual) 1.3 10^3/uL (0.5-4.7) 04/19/20 10:55 Abs Monocytes (Manual) 0.3 10^3/uL (0.1-1.4) 04/19/20 10:55 Absolute Eos (Manual) 0.1 10^3/uL (0.0-0.6) 04/19/20 10:55 Abs Basophils (Manual) 0.0 10^3/uL (0.0-0.2) 04/19/20 10:55 Toxic Vacuolation PRESENT 04/19/20 10:55 Platelet Comment ADEQUATE 04/19/20 10:55 Hypochromasia SLIGHT 04/19/20 10:55 Anisocytosis SLIGHT 04/19/20 10:55 Tear Drop Cells 1+ 04/19/20 10:55 Sodium 135.8 mmol/L (137-145) L 04/25/20 05:57 Potassium 4.0 mmol/L (3.6-5.0) 04/25/20 05:57 Chloride 105 mmol/L (98-107) 04/25/20 05:57 Carbon Dioxide 26 mmol/L (22-30) 04/25/20 05:57 Anion Gap 5 (5-19) 04/25/20 05:57 BUN 23 mg/dL (7-20) H 04/25/20 05:57 Creatinine 1.59 mg/dL (0.52-1.25) H 04/25/20 05:57 Est GFR ( Amer) 53 (>60) L 04/25/20 05:57 Est GFR (MDRD) Non-Af 44 (>60) L 04/25/20 05:57 Glucose 114 mg/dL (75-110) H 04/25/20 05:57 Calcium 8.1 mg/dL (8.4-10.2) L 04/25/20 05:57 Urine Color YELLOW 04/19/20 10:00 Urine Appearance CLEAR 04/19/20 10:00 Urine pH 5.0 (5.0-9.0) 04/19/20 10:00 Ur Specific [place] 1.012 04/19/20 10:00 Urine Protein NEGATIVE mg/dL (NEGATIVE) 04/19/20 10:00 Urine Glucose (UA) NEGATIVE mg/dL (NEGATIVE) 04/19/20 10:00 Urine Ketones NEGATIVE mg/dL (NEGATIVE) 04/19/20 10:00 Urine Blood NEGATIVE (NEGATIVE) 04/19/20 10:00 Urine Nitrite NEGATIVE (NEGATIVE) 04/19/20 10:00 Urine Bilirubin NEGATIVE (NEGATIVE) 04/19/20 10:00 Urine Urobilinogen NEGATIVE mg/dL (<2.0) 04/19/20 10:00 Ur Leukocyte Esterase NEGATIVE (NEGATIVE) 04/19/20 10:00 Urine WBC (Auto) 1 /HPF 04/19/20 10:00 Urine RBC (Auto) 0 /HPF 04/19/20 10:00 Squamous Epi Cells Auto <1 /HPF 04/19/20 10:00 Urine Mucus (Auto) RARE /LPF 04/19/20 10:00 Urine Ascorbic Acid NEGATIVE (NEGATIVE) 04/19/20 10:00 COVID-19 Source NASOPHARYNGEAL 04/19/20 10:05 COVID-19 ([facility]) NOT DETECTED 04/19/20 10:05 Blood Type O POSITIVE 04/24/20 06:07 Antibody Screen NEGATIVE 04/24/20 06:07 Impressions: Chest X-Ray 04/19/20 00:00 IMPRESSION: No acute cardiopulmonary process. Knee X-Ray 04/24/20 08:41 IMPRESSION: Uncomplicated TKA hardware with expected immediate postoperative findings. Plan Plan of Treatment: Patient be discharged home in a weightbearing as tolerated basis with home health services and DME. Follow-up with Dr. Jaun Roberts and son of surgery in 2 weeks for staple removal. Time Spent: Less than 30 Minutes Stroke Is this a Stroke Patient?: No Stroke Pt being discharged on Anti-thrombolytic therapy?: Yes Acute Heart Failure - Is this a Heart Failure Patient?: No
[2020-04-25] MEDS: SENNOSIDES/DOCUSATE 8.6-50 MG 1 EACH TABLET PO SCH (09:54)
[2020-04-25] MEDS: ASPIRIN 81 MG TABLET, ENT COATED PO SCH (09:54)
[2020-04-25] MEDS: OXYCODONE HCL SR 10 MG TABLET PO SCH (09:54)
[2020-04-25] MEDS ORDERED: HYDROCHLOROTHIAZIDE 12.5 MG TABLET PO SCH (10:00)
[2020-04-25] MEDS ORDERED: PRENATAL VITAMIN W DHA CAPSULE PO SCH (10:00)
[2020-04-25] MEDS ORDERED: LOSARTAN POTASSIUM 50 MG TABLET PO SCH (10:00)
[2020-04-25 13:40] VITALS: BP 148/71
== END 2020-04-25 16:48 | disposition home health service (06) | DRG 470 ==
LOC: INOR 05:17 → 4S 10:31
PROVIDERS: ADMIT Orthopaedic Surgery; ATTEND Orthopaedic Surgery
PROC: 0SRC0JA Replacement of Right Knee Joint with Synthetic Substitute, Uncemented, Open Approach (ICD-10-PCS; principal; 2020-04-24 07:30)
DX: M17.11 Unilateral primary osteoarthritis, right knee (principal); I10 Essential (primary) hypertension; F17.210 Nicotine dependence, cigarettes, uncomplicated
CPT/HCPCS: 01402; 36415; 71046; 80048; 81001; 84132; 85025; 85027; 86850; 86900; 86901; 87635; 88305; 88311; 93005; 93010; 94660; 94799; C1776; C9290; C9803; J0330; J0690; J1100; J1170; J1200; J1741; J2250; J2370; J2405; J2704; J3010; J3370; J3490; J7050; J7060; J7120

== ENCOUNTER → 2020-07-19 | Outpatient (CLI) | payer OTHER, MEDICARE ==
--- NOTE | 2020-07-19 10:50 | RADIOLOGY REPORT (SQ) ---
EXAM DESCRIPTION: CHEST PA/LATERAL IMAGES COMPLETED DATE/TIME: 07/19/2020 10:38 am REASON FOR STUDY: PRE-OP COMPARISON: 04/19/2020 EXAM PARAMETERS: NUMBER OF VIEWS: two views TECHNIQUE: Digital Frontal and Lateral radiographic views of the chest acquired. RADIATION DOSE: NA LIMITATIONS: none FINDINGS: LUNGS AND PLEURA: No opacities, masses or pneumothorax. No pleural effusion. MEDIASTINUM AND HILAR STRUCTURES: No masses or contour abnormalities. HEART AND VASCULAR STRUCTURES: Heart normal size. No evidence for failure. BONES: No acute findings. HARDWARE: None in the chest. OTHER: No other significant finding. IMPRESSION: NO SIGNIFICANT RADIOGRAPHIC FINDING IN THE CHEST. TECHNICAL DOCUMENTATION: JOB ID: [id number] 2010 [employer]- All Rights Reserved Reading location - IP/workstation name: NIA
[2020-07-19 11:29] LABS: APPEARANCE,URINE CLEAR; BILIRUBIN,URINE NEGATIVE (NEGATIVE); COLOR,URINE YELLOW; GLUCOSE, URINE NEGATIVE (NEGATIVE); KETONES,URINE NEGATIVE (NEGATIVE); LEUKOCYTE ESTERASE,URINE NEGATIVE (NEGATIVE); NITRITE,URINE NEGATIVE (NEGATIVE); PROTEIN,URINE NEGATIVE (NEGATIVE); URINE SPECIFIC GRAVITY 1.019; UROBILINOGEN,URINE NEGATIVE mg/dL (<2.0)
[2020-07-19 11:47] LABS: HEMATOCRIT 45.5 % (37.9-51.0); HEMOGLOBIN 15.3 g/dL (13.5-17.0); MEAN CORPUSCULAR HGB CONC 33.6 g/dL (32.0-36.0); MEAN CORPUSCULAR VOLUME 86 fl (80-97); PLATELET COUNT 217 10^3/uL (150-450); RED BLOOD COUNT 5.27 10^6/uL (4.35-5.55); RED CELL DISTRIBUTION WIDTH 15.2 % (11.5-14.0); WHITE BLOOD COUNT 3.5 10^3/uL (4.0-10.5)
[2020-07-19 11:59] LABS: ANION GAP 10 (5-19); BLOOD UREA NITROGEN 36 mg/dL (7-20); CARBON DIOXIDE 25 mmol/L (22-30); CHLORIDE 106 mmol/L (98-107); GLUCOSE 103 mg/dL (75-110); POTASSIUM 4.2 mmol/L (3.6-5.0)
[2020-07-19 12:11] LABS: ABSOLUTE LYMPHOCYTES# (MANUAL) 1.3 10^3/uL (0.5-4.7); ABSOLUTE MONOCYTES # (MANUAL) 0.5 10^3/uL (0.1-1.4); BASOPHILS % (MANUAL) 1 % (0-2); EOSINOPHILS % (MANUAL) 1 % (0-6); LYMPHOCYTES % (MANUAL) 36 % (13-45); MONOCYTES % (MANUAL) 14 % (3-13); SEGMENTED NEUTROPHILS % (MAN) 48 % (42-78); TOTAL CELLS COUNTED 100
[2020-07-19 12:13] LABS: ANISOCYTOSIS SLIGHT; OVALOCYTES SLIGHT; PLATELET COMMENT ADEQUATE
--- NOTE | 2020-07-19 21:50 | EKG REPORT ---
SEVERITY:- DEFECTIVE ECG - LEFT AXIS DEVIATION Probably sinus rhythm.Baseline artifact.Repeat EKG : Confirmed by: Katt Trejo MD 19-Jul-2020 21:50:42
== END ==
LOC: OD 10:08
PROVIDERS: ATTEND Orthopaedic Surgery
DX: Z01.810 Encounter for preprocedural cardiovascular examination (principal); Z01.811 Encounter for preprocedural respiratory examination; Z01.812 Encounter for preprocedural laboratory examination
CPT/HCPCS: 36415; 71046; 80048; 81001; 85025; 93005; 93010

== ENCOUNTER 2020-08-07 06:27 | Inpatient (IN) | payer OTHER, MEDICARE ==
[~2020-08-07 06:27] MED LIST changes: +BUPIVACAINE INJ/PF LIPOSOME/PF 266 MG/20 ML SDV INJ PRN; -CEFAZOLIN INJ 1 GM VIAL ONE; +EPHEDRINE SULFATE INJ 50 MG/1 ML AMPULE ONE; +FENTANYL CITRATE INJ/PF 100 MCG/2 ML AMPUL ONE; -LACTATED RINGERS 1000 ML IV PRN; +MIDAZOLAM 2 MG/2 ML INJ ONE; +NORMAL SALINE 1000 ML (RENAL PATIENTS) IV PRN; +ONDANSETRON HCL INJ/PF 4 MG/2 ML SDV ONE; -OXYCODONE HCL SR 10 MG TABLET PO ONE; +OXYCODONE HCL SR 10 MG TABLET PO PRN; -PANTOPRAZOLE SODIUM 20 MG TABLET.DR PO ONE; +PROPOFOL INJ 200 MG/20 ML VIAL IV ONE; +TRANEXAMIC ACID INJ/PF 1,000 MG/10 ML SDV ONE
[2020-08-07] MEDS ORDERED: ONDANSETRON HCL INJ/PF 4 MG/2 ML SDV ONE (08:07)
[2020-08-07] MEDS ORDERED: DEXAMETHASONE SOD PHOSPHATE INJ 4 MG/1 ML VIAL ONE (08:07)
[2020-08-07] MEDS ORDERED: FENTANYL CITRATE INJ/PF 100 MCG/2 ML AMPUL ONE ×2 (08:07→09:10)
[2020-08-07] MEDS ORDERED: MIDAZOLAM 2 MG/2 ML INJ ONE (08:07)
[2020-08-07] MEDS ORDERED: TRANEXAMIC ACID INJ/PF 1,000 MG/10 ML SDV ONE ×2 (08:07→11:49)
[2020-08-07] MEDS ORDERED: MORPHINE SULFATE 10 MG/ML INJ ONE (08:07)
[2020-08-07] MEDS ORDERED: PROPOFOL INJ 200 MG/20 ML VIAL IV ONE (08:08)
[2020-08-07] MEDS ORDERED: BUPIVACAINE HCL 0.25 % INJ/PF (2.5 MG/1 ML) 30 ML VIAL ONE (08:10)
[2020-08-07] MEDS ORDERED: BUPIVACAINE HCL 0.25% /EPINEPHRINE INJ/PF 30 ML SDV ONE (08:14)
[2020-08-07] MEDS ORDERED: PANTOPRAZOLE SODIUM 20 MG TABLET.DR PO ONE (08:19)
[2020-08-07] MEDS ORDERED: CEFAZOLIN INJ 1 GM VIAL ONE (08:19)
[2020-08-07] MEDS ORDERED: OXYCODONE HCL SR 10 MG TABLET PO ONE (08:19)
--- NOTE | 2020-08-07 10:01 | EKG REPORT ---
SEVERITY:- ABNORMAL ECG - SINUS RHYTHM FIRST DEGREE AV BLOCK LEFT ANTERIOR FASCICULAR BLOCK : Confirmed by: Jorge Villa 07-Aug-2020 10:00:14
[2020-08-07] MEDS ORDERED: PROMETHAZINE HCL INJ 25 MG/1 ML VIAL IV PRN ×2 (10:21)
[2020-08-07] MEDS ORDERED: MORPHINE SULFATE 10 MG/ML INJ IV PRN (10:21)
[2020-08-07] MEDS ORDERED: MEPERIDINE HCL/PF INJ 25 MG/1 ML DISP.SYRIN IV PRN (10:21)
[2020-08-07] MEDS ORDERED: DIPHENHYDRAMINE HCL 50 MG/ML VIAL IV PRN ×2 (10:21→10:38)
[2020-08-07] MEDS ORDERED: FENTANYL CITRATE INJ/PF 100 MCG/2 ML AMPUL IV PRN ×3 (10:21)
--- NOTE | 2020-08-07 10:37 | Operative Report ---
Operative Report DATE OF SURGERY: 08/07/20 PREOPERATIVE DIAGNOSIS: Left knee arthritis OPERATION: Left knee arthroplasty SURGEON: LETICIA COLIN ANESTHESIA: GA TISSUE REMOVED OR ALTERED: Bone to pathology ESTIMATED BLOOD LOSS: 75 PROCEDURE: Implants used: Femur: Victor Manuel triathlon size 7 CR uncemented femur Tibia: 7 uncemented tibia Tibial liner: 11 mm CS insert Patella: 40 mm oval patella uncemented Procedure with the patient supine on the operating table the left the limb is prepped and draped in a sterile fashion. The limb was elevated for exsanguination and the tourniquet inflated to 280 torr. A standard midline median parapatellar approach the knee is taken. Access is gained to the femoral canal through the intercondylar notch. Intramedullary alignment instrumentation used to resect 10 mm of distal femur in 5 of valgus. Sizing guide indicated a size 7 femur. Appropriate cutting jig is then used to fashion anterior posterior and chamfer cuts. A trial reduction femurs performed and this is judged to be adequate. Attention was next turned to the tibia. Using an extra medullary alignment system 11 lateral millimeters was resected off the[] tibial plateau to accommodate a medial tibial plateau defect. This is sized to a size 7 tibia. A trial reduction was now performed with a 7 femur and a 7 tibia using a 11 millimeters spacer. It is full extension and central patellofemoral tracking. The articular surface the patella was next resected using an oscillating saw. All trial implants were removed. Above implants are impacted into position. The tourniquet was deflated hemostasis obtained the wound is then closed in layers using interrupted Vicryl followed by elodia. A sterile compressive dressing was applied and the patient returned to recovery room in satisfactory condition.
[2020-08-07] MEDS ORDERED: ACETAMINOPHEN 325 MG TABLET PO PRN (10:38)
[2020-08-07] MEDS ORDERED: ZOLPIDEM TARTRATE 5 MG TABLET PO PRN (10:38)
[2020-08-07] MEDS ORDERED: MAG HYDROX/AL HYDROX/SIMETH SUSP 30 ML UDCUP PO PRN (10:38)
[2020-08-07] MEDS ORDERED: ONDANSETRON 4 MG TAB.RAPDIS PO PRN (10:38)
[2020-08-07] MEDS ORDERED: RINGERS SOLUTION,LACTATED 1,000 ML IV PRN (10:38)
[2020-08-07] MEDS ORDERED: TRANEXAMIC ACID INJ/PF 1,000 MG/10 ML SDV IV ONE (10:38)
[2020-08-07] MEDS ORDERED: ONDANSETRON HCL INJ/PF 4 MG/2 ML SDV IV PRN (10:38)
--- NOTE | 2020-08-07 12:00 | RADIOLOGY REPORT (SQ) ---
EXAM DESCRIPTION: KNEE LEFT 2 VIEWS IMAGES COMPLETED DATE/TIME: 08/07/2020 11:46 am REASON FOR STUDY: Post OP -Long Cassette in PACU M16.12 UNILATERAL PRIMARY OSTEOARTHRITIS, LEFT HIP COMPARISON: None. NUMBER OF VIEWS: Two view(s). TECHNIQUE: Digital radiographic images of the left knee post-procedure. LIMITATIONS: None. FINDINGS: BONES: No worrisome or unexpected findings post-procedure. DEVICE: Total knee arthroplasty. SOFT TISSUES: No worrisome findings. Expected postoperative soft tissue changes. IMPRESSION: SATISFACTORY POSTOPERATIVE LEFT KNEE. TECHNICAL DOCUMENTATION: JOB ID: [id number] 2010 [employer]- All Rights Reserved Reading location - IP/workstation name: [email or web address]
[2020-08-07] MEDS ORDERED: SUCCINYLCHOLINE CHLORIDE INJ 200 MG/10 ML VIAL ONE (13:47)
[2020-08-07] MEDS ORDERED: PHENYLEPHRINE HCL INJ/PF 10 MG/1 ML SDV ONE (13:47)
[2020-08-07] MEDS: OXYCODONE HCL IR 5 MG TABLET PO PRN (14:57)
[2020-08-07] MEDS: SENNOSIDES/DOCUSATE 8.6-50 MG 1 EACH TABLET PO SCH (17:20)
[2020-08-07] MEDS: IBUPROFEN 800 MG in NORMAL SALINE 250 ML IV SCH (17:22)
[2020-08-07] MEDS: OXYCODONE HCL SR 10 MG TABLET PO SCH (21:08)
[2020-08-07] MEDS ORDERED: VANCOMYCIN HCL 1,000 MG in DEXTROSE 5%-WATER 250 ML IV ONE (22:38)
[2020-08-08] MEDS: OXYCODONE HCL IR 5 MG TABLET PO PRN ×2 (00:51→08:23)
[2020-08-08] MEDS: IBUPROFEN 800 MG in NORMAL SALINE 250 ML IV SCH ×2 (02:11→10:12)
[2020-08-08] MEDS ORDERED: PANTOPRAZOLE SODIUM 40 MG TABLET.DR PO SCH (06:00)
[2020-08-08 06:42] LABS: HEMATOCRIT 39.5 % (37.9-51.0); HEMOGLOBIN 13.5 g/dL (13.5-17.0); MEAN CORPUSCULAR HEMOGLOBIN 29.3 pg (27.0-33.4); MEAN CORPUSCULAR HGB CONC 34.2 g/dL (32.0-36.0); MEAN CORPUSCULAR VOLUME 86 fl (80-97); PLATELET COUNT 221 10^3/uL (150-450); RED CELL DISTRIBUTION WIDTH 15.2 % (11.5-14.0); WHITE BLOOD COUNT 7.3 10^3/uL (4.0-10.5)
--- NOTE | 2020-08-08 07:17 | PDOC DISCHARGE SUMMARY ---
Impression - Admit/DC Date/PCP Admission Date/Primary Care Provider: 08/07/20 08:17 ARTURO PACKER MD Discharge Date: 08/08/20 - Additional Information Resuscitation Status: Full Code Discharge Diet: Regular Discharge Activity: Balance Activity w/Rest, No tub bath Referrals: LETICIA COLIN MD [ACTIVE STAFF] - 08/22/20 10:30 am Home Medications: Losartan/Hydrochlorothiazide [Hyzaar 100-12.5 Tablet] 1 tab PO QAM 04/24/20 Amlodipine Besylate [Norvasc 5 mg Tablet] 5 mg PO DAILY 08/07/20 Methocarbamol [Robaxin 750 mg Tablet] 750 mg PO Q8HP PRN 08/07/20 Sildenafil Citrate 100 mg PO DAILYP PRN 08/07/20 History of Present Illiness History of Present Illness: WALLY YANCEY is a 64 year old male Patient is a 64-year-old white male with progressive left knee pain and function disability second osteoarthritis. Patient admitted for elective left knee arthroplasty. Hospital Course Hospital Course: Patient is admitted through the operating where he undergoes uncomplicated left knee arthroplasty. Is returned to the floor in satisfactory addition. He ambulates 30 feet with physical therapy on the day of surgery. Compressive dressing is removed on the first postoperative morning. Underlying OpSite dressing is clean dry and intact. Physical Exam Vital Signs: Temp Pulse Resp BP Pulse Ox 36.3 C 78 17 148/89 H 100 08/07/20 19:47 08/07/20 19:47 08/07/20 19:47 08/07/20 19:47 08/07/20 19:47 Intake & Output 08/07/20 08/08/20 08/09/20 06:59 06:59 06:59 Intake Total 3746 Output Total 1989 Balance 1756 Weight 147 kg General appearance: PRESENT: no acute distress, mild distress, obese Head exam: PRESENT: normocephalic Respiratory exam: PRESENT: unlabored Cardiovascular exam: PRESENT: RRR Pulses: PRESENT: +1 pedal pulses bilateral Vascular exam: PRESENT: normal capillary refill GI/Abdominal exam: PRESENT: soft Rectal exam: PRESENT: deferred Musculoskeletal exam: PRESENT: other - Left knee compressive dressing is removed on the first postoperative morning. Underlying OpSite dressing clean dry and intact and has not changed. Minimal pedal edema. Distal neurovascular examination is intact. Results Laboratory Results: WBC 7.3 10^3/uL (4.0-10.5) 08/08/20 05:50 RBC 4.60 10^6/uL (4.35-5.55) 08/08/20 05:50 Hgb 13.5 g/dL (13.5-17.0) 08/08/20 05:50 Hct 39.5 % (37.9-51.0) 08/08/20 05:50 MCV 86 fl (80-97) 08/08/20 05:50 MCH 29.3 pg (27.0-33.4) 08/08/20 05:50 MCHC 34.2 g/dL (32.0-36.0) 08/08/20 05:50 RDW 15.2 % (11.5-14.0) H 08/08/20 05:50 Plt Count 221 10^3/uL (150-450) 08/08/20 05:50 Potassium 3.9 mmol/L (3.6-5.0) 08/07/20 08:39 COVID-19 Source NASOPHARYNGEAL 08/02/20 10:40 COVID-19 ([facility]) NOT DETECTED 08/02/20 10:40 Impressions: Knee X-Ray 08/07/20 10:40 IMPRESSION: SATISFACTORY POSTOPERATIVE LEFT KNEE. Plan Plan of Treatment: Discharge home in a weightbearing as tolerated basis with home health services and DME. Follow-up Dr. Colin and [facility] for surgery in 2 weeks for staple removal. Time Spent: Less than 30 Minutes Stroke Is this a Stroke Patient?: No Stroke Pt being discharged on Anti-thrombolytic therapy?: Yes Acute Heart Failure Is this a Heart Failure Patient?: No
[2020-08-08 07:29] LABS: BLOOD UREA NITROGEN 34 mg/dL (7-20); CALCIUM 8.7 mg/dL (8.4-10.2); CARBON DIOXIDE 21 mmol/L (22-30); CHLORIDE 107 mmol/L (98-107); GLUCOSE 123 mg/dL (75-110); POTASSIUM 4.2 mmol/L (3.6-5.0)
[2020-08-08 07:30] LABS: ANION GAP 10 (5-19)
[2020-08-08] MEDS ORDERED: (PENDING PHARMACY ID) (Losartan/Hydrochlorothiazide [Hyzaar 100-12.5 Tablet] 1 TAB) PO SCH (08:00)
[2020-08-08] MEDS ORDERED: HYDROCHLOROTHIAZIDE 12.5 MG TABLET PO SCH (08:00)
[2020-08-08] MEDS ORDERED: LOSARTAN POTASSIUM 50 MG TABLET PO SCH (08:00)
[2020-08-08 08:22] VITALS: BP 139/77
[2020-08-08] MEDS: OXYCODONE HCL SR 10 MG TABLET PO SCH (09:22)
[2020-08-08] MEDS: SENNOSIDES/DOCUSATE 8.6-50 MG 1 EACH TABLET PO SCH (09:27)
[2020-08-08] MEDS ORDERED: AMLODIPINE BESYLATE 5 MG TABLET PO SCH (10:00)
[2020-08-08] MEDS ORDERED: PRENATAL VITAMIN W DHA CAPSULE PO SCH (10:00)
[2020-08-08] MEDS ORDERED: ASPIRIN 81 MG TABLET, ENT COATED PO SCH (10:00)
== END 2020-08-08 14:06 | disposition home health service (06) | DRG 470 ==
LOC: INOR 08:17 → 4W 12:26
PROVIDERS: ADMIT Orthopaedic Surgery; ATTEND Orthopaedic Surgery
PROC: 0SRD0J9 Replacement of Left Knee Joint with Synthetic Substitute, Cemented, Open Approach (ICD-10-PCS; principal; 2020-08-07 09:15)
DX: M16.12 Unilateral primary osteoarthritis, left hip (principal); I10 Essential (primary) hypertension; Z96.651 Presence of right artificial knee joint; Z03.818 Encounter for observation for suspected exposure to other biological agents ruled out; Z79.899 Other long term (current) drug therapy; Z79.891 Long term (current) use of opiate analgesic
CPT/HCPCS: 01402; 36415; 80048; 84132; 85027; 87635; 88305; 88311; 93005; 93010; 94799; C1776; C9803; J0330; J0690; J1100; J1741; J2250; J2270; J2370; J2405; J2704; J3010; J3370; J3490; J7050; J7060; J7120